=== PATIENT | female | born 1985 | race Caucasian/White ===

== ENCOUNTER 2024-03-09 07:35 | Emergency (ER) | payer OTHER ==
[~2024-03-09] VITALS: Ht 157.5 cm; Wt 81.0 kg
[2024-03-09 07:43] VITALS: O2SAT 98
[2024-03-09] MEDS ORDERED: AMOX1TAB16 MT (08:19)
[2024-03-09 08:33] VITALS: BP 140/88; PULSE 80; RESP 18; TEMP 98.2
== END 2024-03-09 08:39 | disposition home or self-care (01) ==
LOC: ER 07:35
DX: K04.7 Periapical abscess without sinus (principal); J45.909 Unspecified asthma, uncomplicated; Z98.890 Other specified postprocedural states
CPT/HCPCS: 99281; 99283